=== PATIENT | male | born 1975 | race Two or more races ===

== ENCOUNTER → 2024-03-16 | Outpatient (CLI) | payer MEDICAID, SELFPAY ==
--- NOTE | 2024-03-16 09:30 | XR_ITS ---
Examination: Upper GI series with KUB Esophagram standard 15 spot fluoroscopic films of the esophagus and stomach Fluoroscopy Exam date and time: March 16, 2024 1101 hours INDICATIONS: Heartburn and gastroesophageal reflux one week TECHNIQUE AND FINDINGS: [employer] AP supine abdomen nonobstructive bowel gas pattern Patient swallowed thin barium with 13 spot fluoroscopic films of the esophagus and stomach obtained Primary peristaltic esophageal waves Moderate continuous gastroesophageal reflux There is no stricture the gastroesophageal junction Moderate sliding esophageal hernia No gastric mass deformity or ulceration Duodenal bulb expands symmetrically with small duodenal diverticulum IMPRESSION: Moderate continuous gastroesophageal reflux There is no stricture at the gastroesophageal junction No gastric mass deformity or ulceration Negative for duodenitis
== END | disposition home or self-care (01) ==
LOC: CDIM 08:59
PROVIDERS: PCP Physician Assistant; Referring Provider Physician Assistant; Visit Provider Physician Assistant
DX: K21.9 Gastro-esophageal reflux disease without esophagitis (principal)
CPT/HCPCS: 74240